=== PATIENT | female | born 1990 | race African-American/Black ===

== ENCOUNTER 2019-06-10 13:16 | Emergency (ER) | payer OTHER ==
[~2019-06-10] VITALS: Ht 172.7 cm; Wt 74.8 kg
[~2019-06-10 13:16] MED LIST: NOHOMEMEDICATIONS; VITAFOL-OB+DHA1 EACH PO
[2019-06-10] MEDS ORDERED: NAPROSYN500 MG PO (15:34)
[2019-06-10] MEDS ORDERED: NORFLEX100 MG PO (15:34)
[2019-06-10 16:02] VITALS: BP 124/81
== END 2019-06-10 16:03 | disposition home or self-care (01) ==
LOC: ER 13:16
DX: S16.1XXA Strain of muscle, fascia and tendon at neck level, initial encounter (principal); S39.012A Strain of muscle, fascia and tendon of lower back, initial encounter; R07.89 Other chest pain; J45.909 Unspecified asthma, uncomplicated; V89.2XXA Person injured in unspecified motor-vehicle accident, traffic, initial encounter; Y92.89 Other specified places as the place of occurrence of the external cause; Y93.89 Activity, other specified; Y99.8 Other external cause status